=== PATIENT | male | born 1945 | race Caucasian/White ===

== ENCOUNTER 2021-03-20 16:08 | Outpatient (CLI) | payer MEDICARE, OTHER | END 2021-03-20 16:09 | disposition home or self-care (01) | LOC: CSHULT 16:08 | PROVIDERS: ATTEND Otolaryngology Plastic Surgery within the Head & Neck | DX: E04.1 Nontoxic single thyroid nodule (principal); E07.9 Disorder of thyroid, unspecified | CPT/HCPCS: 76536 ==

== ENCOUNTER 2021-12-04 10:22 | Outpatient (CLI) | payer MEDICARE, OTHER | END 2021-12-04 10:23 | disposition home or self-care (01) | LOC: CSHULT 10:22 | PROVIDERS: ATTEND Otolaryngology Plastic Surgery within the Head & Neck | DX: E04.1 Nontoxic single thyroid nodule (principal) | CPT/HCPCS: 76536 ==

== ENCOUNTER 2022-07-16 10:26 | Outpatient (CLI) | payer MEDICARE, OTHER | END 2022-07-16 10:27 | disposition home or self-care (01) | LOC: CSHULT 10:26 | PROVIDERS: ATTEND Otolaryngology Plastic Surgery within the Head & Neck | DX: E04.1 Nontoxic single thyroid nodule (principal) | CPT/HCPCS: 76536 ==